=== PATIENT | female | born 1970 | race American Indian/Alaskan Native ===

== ENCOUNTER 2019-04-04 01:42 | Emergency (ER) | payer SELFPAY ==
[2019-04-04] MEDS ORDERED: NORCO 5/325 PO ONE (02:42)
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
[2019-04-04 05:47] VITALS: BP 168/104
== END 2019-04-04 06:20 | disposition other institution (70) ==
LOC: ED 01:42
DX: S02.30XB Fracture of orbital floor, unspecified side, initial encounter for open fracture (principal); I11.0 Hypertensive heart disease with heart failure; I50.9 Heart failure, unspecified; F17.200 Nicotine dependence, unspecified, uncomplicated; Y04.0XXA Assault by unarmed brawl or fight, initial encounter; Y93.89 Activity, other specified; Y92.89 Other specified places as the place of occurrence of the external cause; Y99.8 Other external cause status
CPT/HCPCS: 70450; 70486